=== PATIENT | female | born 1950 | race Caucasian/White ===

== ENCOUNTER → 2016-02-22 | Outpatient (CLI) | payer MEDICARE, MEDICAID ==
[~2016-02-22] MED LIST: ASPIRIN EC325 MG PO; AUGMENTIN 875 M1 TA1 PO; CYMBALTA30 MG PO; HABITROL14 MG/24 H TD; K-DUR 1010 MEQ PO; MAXZIDE-25 25MG25 MG PO; TRAZODO50 MG PO; ZOCOR10 MG PO
[2016-02-22 13:28] LABS: EST GLOM FILT AFRICAN AMERICAN > 60 ml/min
== END | disposition home or self-care (01) ==
LOC: CT 01-22 11:00 → LAB 12:56 → CT 12:56
PROVIDERS: Radiology Diagnostic Radiology
DX: I65.23 Occlusion and stenosis of bilateral carotid arteries (principal); R41.0 Disorientation, unspecified; G93.5 Compression of brain

== ENCOUNTER 2016-07-07 11:21 | Inpatient (IN) | payer MEDICARE, MEDICAID ==
[~2016-07-07] VITALS: Ht 162.6 cm; Wt 52.8 kg
--- NOTE | ~2016-07-07 | DS ---
[place], [place] DISCHARGE SUMMARY NAME: TAMARA PHILLIP UNIT #: [id number] ROOM: 525 DOCTOR: JELANI SHELLEY MD BIRTHDATE: [birth year] DOS: HOSPITAL COURSE: The patient is 66 years old, very well known to us. The patient comes in with complaints of difficulty breathing. The patient was seen in the office with cough and shortness of breath. Please see the H and P for details. After admission, chest x-ray did not show any pathology. She was placed on steroids, antibiotics, breathing treatments. She became allergic to DuoNebs, so was switched to Pulmicort and Xopenex, which she has tolerated nicely. The last few days, the bronchospasm persisted, so a CT of the chest was ordered, which has come back showing no pathology. With appropriate treatment plan, finally, the bronchospasm has resolved and she is no longer having a cough or shortness of breath, no wheezing is heard today on exam. So the plan therefore is to discharge her to home. She is encouraged to quit smoking. She has requested Chantix, which will be given today, a nebulizer with Xopenex was also prescribed. DISCHARGE DIAGNOSES: 1. Acute exacerbation of chronic obstructive pulmonary disease, acute respiratory distress syndrome. 2. Acute hypoxic respiratory failure. 3. Acute tracheobronchitis. 4. Benign hypertension. 5. Mixed hyperlipidemia, unable to tolerate statins. 6. Chronic low back pain with fibromyalgia. 7. 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 DISCHARGE MEDICATIONS: Will be Pulmicort 0.5 b.i.d., Xopenex 0.5 b.i.d. in the breathing treatments, Chantix daily for a month, prednisone tapering dose, Cipro 500 b.i.d., fluticasone nasal spray b.i.d., potassium 10 daily. The patient is already on low dose Zocor, so no increases in medication will be made, even though the LDL is 160; Cymbalta 60 mg daily; fenofibrate 160 mg daily; Plavix 75 daily; Xanax 0.5 daily; trazodone 50 at bedtime; lisinopril 5 daily; gabapentin 600 b.i.d.; naproxen 500 b.i.d.; triamterene/hydrochlorothiazide 37.5/25 one tablet daily; also Proventil 2 puffs twice daily p.r.n. for shortness of breath. [place], [place] DISCHARGE SUMMARY NAME: TAMARA PHILLIP UNIT #: [id number] ROOM: [facility] DOCTOR: JELANI SHELLEY MD BIRTHDATE: [birth year] JELANI SHELLEY MD CM:DISCHARG [phone] JELANI SHELLEY MD 07/10/16 0759 interface
--- NOTE | ~2016-07-07 | PR ---
[place], [place] PROGRESS NOTE NAME: TAMARA PHILLIP UNIT #: [id number] ROOM: 525 DOCTOR: JELANI SHELLEY MD BIRTHDATE: [birth year] DOS: SUBJECTIVE: The patient has a slight cough, headache, and shortness of breath. OBJECTIVE: VITAL SIGNS: Graphic trend shows a pressure 120/45, pulse of 63, respirations 18, temperature 97.5. LUNGS: Diminished breath sounds, scattered rhonchi heard bilaterally. HEART: Regular. ABDOMEN: Soft, scaphoid. EXTREMITIES: Without any edema. ASSESSMENT AND PLAN: 1. Acute exacerbation of chronic obstructive pulmonary disease with continued bronchospasm. She had refused breathing treatments, albuterol was giving a lot of side effects. We will change to Xopenex today as well as Pulmicort twice a day help with continued bronchospasm. A CT of the chest will also be ordered along with the sputum culture. 2. Possible postnasal drainage along with rhinitis and sinusitis. Flonase nasal spray was given. 3. Chronic pain from fibromyalgia, controlled. 4. Benign hypertension, controlled. 5. Tobacco dependence, has not needed any medications. JELANI SHELLEY MD CM:PNTRANS [phone] JELANI SHELLEY MD 07/09/16 1118 interface
--- NOTE | ~2016-07-07 | PR ---
[place], [place] PROGRESS NOTE NAME: TAMARA PHILLIP UNIT #: [id number] ROOM: 525 DOCTOR: JELANI SHELLEY MD BIRTHDATE: [birth year] DOS: SUBJECTIVE: The patient did have a fairly good night. She does not have any new complaints. OBJECTIVE: VITAL SIGNS: Blood pressure is 107/45, pulse of 75, respirations 20, temperature 97.7. LUNGS: Diminished breath sounds, clear this morning. HEART: Regular. ABDOMEN: Soft, scaphoid. EXTREMITIES: Without any edema. ASSESSMENT AND PLAN: 1. Acute exacerbation of chronic obstructive pulmonary disease with acute respiratory distress syndrome, much improved. The patient's bronchospasm has resolved. CT of the chest still shows no pathology. The patient is being discharged. 2. Acute tracheobronchitis, on antibiotics. We will switch to p.o. prednisone and steroids. Order a nebulizer and the patient is encouraged to quit smoking. JELANI SHELLEY MD CM:PNTRANS [phone] JELANI SHELLEY MD 07/10/16 0810 interface
--- NOTE | ~2016-07-07 | WRIGHTHP ---
[place], [place] PATIENT HISTORY AND PHYSICAL EXAM [id number] UNIT #: [id number] ROOM: 525 DOCTOR: JELANI SHELLEY MD BIRTHDATE: [birth year] DOS: 07/07/2016 HISTORY OF PRESENT ILLNESS: The patient is [id number], has been sick for 2 weeks, initially started out as cough with increasing difficulty breathing for the last 2-3 days and presented to the office. She denies having any chest pains or palpitations. She has continued nonstop cough and was unable to even converse. She does not have any palpitations, any abdominal pain, any nausea, any emesis or legs swelling. She continues to smoke. PAST MEDICAL HISTORY: Significant for; 1. Chronic low back pain. 2. Major depression. 3. History of TIA with bilateral carotid artery and carotid atherosclerosis. 4. Benign hypertension. 5. Type 2 diabetes mellitus, non-insulin dependent. 6. Tobacco dependence. 7. History of fibromyalgia with chronic back pain. MEDICATIONS: She is currently on are Xanax 0.5 daily p.r.n., Plavix 75 daily, duloxetine 60 daily, fenofibrate 160 daily, gabapentin 600 b.i.d., triamterene/hydrochlorothiazide 1 tablet daily, lisinopril 5 daily, naproxen 500 b.i.d., potassium 10 daily, simvastatin 10 daily, trazodone 50 at bedtime. SOCIAL HISTORY: Smoker of about 1 to 1-1/2 pack of cigarettes. Denies using any alcohol. PHYSICAL EXAMINATION: GENERAL: She is awake and alert and oriented. VITAL SIGNS: Blood pressure is 116/56, pulse is 65, respirations 20, temperature 97.7. LUNGS: Diminished breath sounds. Bronchi, rales and wheezes. HEART: Regular. ABDOMEN: Obese, soft, nontender. EXTREMITIES: Without any edema. LABORATORY DATA: X-ray of the left shoulder shows glenohumeral joint space narrowing. Chest x-ray shows no acute pulmonary disease. Glucose 94, BUN 22, creatinine 0.81. Electrolytes were normal. WBC count is 5.9, normal electrolytes. ASSESSMENT AND PLAN: 1. Acute exacerbation of chronic obstructive pulmonary disease with acute respiratory distress syndrome, pulse ox in the low 80s in the office. Breathing treatment was given in the office but patient continued to have bronchospasm, so we offered to admit her for steroids and antibiotics. The patient is also instructed to discontinue smoking. Chest x-ray and routine labs were ordered to rule out underlying pneumonia. A PST will need to be done as an outpatient when the patient is more better to maximize the bronchodilator regimen. 2. Fibromyalgia with chronic back pain. Continue home medications. No changes made. [place], [place] PATIENT HISTORY AND PHYSICAL EXAM NAME: TAMARA PHILLIP UNIT #: [id number] ROOM: [facility] DOCTOR: JELANI SHELLEY MD BIRTHDATE: [birth year] JELANI SHELLEY MD CM:HISPHYS:PATIENT HISTORY AND PHYSICAL EXAMINATION 7 5 JELANI SHELLEY MD 07/08/1615 interface
[2016-07-07 11:00] VITALS: BP 174/74
[2016-07-07] MEDS ORDERED: TRICOR48 MG PO (12:14)
[2016-07-07] MEDS ORDERED: XANAX0.25 MG PO (12:15)
[2016-07-07] MEDS ORDERED: PLAVIX75 M1 PO (12:15)
[2016-07-07] MEDS ORDERED: LISINOPRIL10 M1 PO (12:15)
[2016-07-07] MEDS ORDERED: TRAZODONE50 MG PO (12:17)
[2016-07-07] MEDS ORDERED: ZESTRIL5 MG PO (12:23)
[2016-07-07] MEDS ORDERED: GABAPENTIN600 MG PO (12:37)
[2016-07-07] MEDS ORDERED: EC NAPROSYN500 MG PO (12:38)
[2016-07-07] MEDS ORDERED: TRIAMTERENE & H1 CAP PO (12:39)
[2016-07-07 13:03] LABS: BASO % 0.7 % (0.0-1.0); EOS # 0.2 10*3/uL (0.0-0.4); EOS % 2.9 % (1.0-4.0); HEMATOCRIT 41.1 % (37.0-47.0); HEMOGLOBIN 13.5 g/dl (12.0-16.0); LYMPH # 2.3 10*3/uL (1.3-4.4); LYMPH % 39.6 % (27.0-41.0); MEAN CELL VOLUME 88.2 fl (81.0-99.0); MEAN CORPUSCULAR HGB CONC 32.8 g/dl (33.0-37.0); MEAN PLATELET VOLUME 9.8 fl (9.6-12.3); MONO # 0.4 10*3/uL (0.1-1.0); MONO % 6.8 % (3.0-9.0); NEUT # 2.9 10*3/uL (2.3-7.9); NEUT % 49.7 % (47.0-73.0); PLATELET COUNT AUTOMATED 340 10*3/uL (130-400); RED BLOOD COUNT 4.66 10*6/uL (4.10-5.10); RED CELL DISTRI WIDTH 12.5 % (0-14.5); WHITE BLOOD COUNT 5.9 10*3/uL (4.8-10.8)
[2016-07-07 13:15] LABS: BUN 24 mg/dl (7-24); CARBON DIOXIDE 27 mmol/L (21-32); CHLORIDE 106 mmol/L (98-107); EST GLOM FILT AFRICAN AMERICAN > 60 ml/min; GLUCOSE 94 mg/dL (65-99); POTASSIUM 4.7 mmol/L (3.5-5.1); SODIUM 139 mmol/L (136-145)
[2016-07-07 16:00] VITALS: BP 166/66
[2016-07-07 20:00] VITALS: BP 174/72
[2016-07-08] VITALS: BP 116/56
[2016-07-08 08:00] VITALS: BP 140/56
[2016-07-08 12:00] VITALS: BP 147/69
[2016-07-08 16:00] VITALS: BP 159/65
[2016-07-08 20:00] VITALS: BP 143/57
[2016-07-09] VITALS (7 sets, daily range): BP systolic 118–152; BP diastolic 40–73
[2016-07-10] VITALS: BP 107/45
[2016-07-10] MEDS ORDERED: PREDNISONE5 MG PO ×2 (06:53→07:02)
[2016-07-10] MEDS ORDERED: CIPRO500 MG PO ×3 (06:53→07:04)
[2016-07-10] MEDS ORDERED: FLUTICASON0.05 MG/AC NAS ×2 (06:53→07:02)
[2016-07-10] MEDS ORDERED: NEBULIZER NEB ×2 (06:53→07:02)
[2016-07-10] MEDS ORDERED: XOPENEX0.63 MG INH ×2 (06:53→07:02)
[2016-07-10] MEDS ORDERED: CHANTIX START M1 TAB PO ×2 (06:53→07:02)
[2016-07-10] MEDS ORDERED: PULMICORT RESP0.5 MG NEB ×2 (06:53→07:02)
[2016-07-10] MEDS ORDERED: PROVENTIL0.09 MG/A1 INH ×2 (06:58→07:02)
[2016-07-10 08:00] VITALS: BP 144/57
== END 2016-07-10 10:07 | disposition home or self-care (01) | DRG 189 ==
LOC: 5E 11:21
PROVIDERS: Internal Medicine
DX: J96.01 Acute respiratory failure with hypoxia (principal); J44.0 Chronic obstructive pulmonary disease with (acute) lower respiratory infection; J44.1 Chronic obstructive pulmonary disease with (acute) exacerbation; G89.29 Other chronic pain; M54.5 Low back pain; I10 Essential (primary) hypertension; E11.9 Type 2 diabetes mellitus without complications; Z86.73 Personal history of transient ischemic attack (TIA), and cerebral infarction without residual deficits; F17.210 Nicotine dependence, cigarettes, uncomplicated; M79.7 Fibromyalgia; J20.9 Acute bronchitis, unspecified; Z53.29 Procedure and treatment not carried out because of patient's decision for other reasons; Z71.6 Tobacco abuse counseling; E78.2 Mixed hyperlipidemia; Z88.8 Allergy status to other drugs, medicaments and biological substances

== ENCOUNTER → 2016-08-01 | Outpatient (CLI) | payer MEDICARE, MEDICAID ==
[~2016-08-01] MED LIST changes: +CHANTIX START M1 TAB PO; +CIPRO500 MG PO; +EC NAPROSYN500 MG PO; +FLUTICASON0.05 MG/AC NAS; +GABAPENTIN600 MG PO; +LISINOPRIL10 M1 PO; +NEBULIZER NEB; +PLAVIX75 M1 PO; +PREDNISONE5 MG PO; +PROVENTIL0.09 MG/A1 INH; +PULMICORT RESP0.5 MG NEB; +TRAZODONE50 MG PO; +TRIAMTERENE & H1 CAP PO; +TRICOR48 MG PO; +XANAX0.25 MG PO; +XOPENEX0.63 MG INH; +ZESTRIL5 MG PO
== END | disposition home or self-care (01) ==
LOC: MRI 07-26 10:00
DX: M19.012 Primary osteoarthritis, left shoulder (principal); M25.712 Osteophyte, left shoulder; M25.412 Effusion, left shoulder; M25.522 Pain in left elbow

== ENCOUNTER → 2016-08-03 | Outpatient (CLI) | payer MEDICARE, MEDICAID | END | disposition home or self-care (01) | LOC: CT 07-20 15:00 | DX: R51 Headache (principal); R42 Dizziness and giddiness ==

== ENCOUNTER 2016-08-06 15:17 | Emergency (ER) | payer MEDICARE, MEDICAID ==
[~2016-08-06] VITALS: Ht 165.1 cm; Wt 52.2 kg
[2016-08-06 15:27] VITALS: BP 156/63
[2016-08-06] MEDS ORDERED: PREDNISONE10 MG PO (15:37)
[2016-08-06] MEDS ORDERED: CYCLOBENZAPRINE5 M3 PO (15:37)
== END 2016-08-06 15:53 | disposition home or self-care (01) ==
LOC: ED 15:17
DX: M79.622 Pain in left upper arm (principal); M54.10 Radiculopathy, site unspecified; R03.0 Elevated blood-pressure reading, without diagnosis of hypertension; J44.9 Chronic obstructive pulmonary disease, unspecified; F17.200 Nicotine dependence, unspecified, uncomplicated; Z88.8 Allergy status to other drugs, medicaments and biological substances; Z79.899 Other long term (current) drug therapy

== ENCOUNTER → 2016-08-22 | Outpatient (CLI) | payer MEDICARE, MEDICAID ==
[~2016-08-22] MED LIST changes: +CYCLOBENZAPRINE5 M3 PO; +PREDNISONE10 MG PO
== END | disposition home or self-care (01) ==
LOC: ORTHO 03:26
DX: M48.02 Spinal stenosis, cervical region (principal); M46.02 Spinal enthesopathy, cervical region

== ENCOUNTER → 2016-12-21 | Outpatient (CLI) | payer MEDICARE, MEDICAID ==
[2016-12-21 09:44] LABS: BASO % 0.4 % (0.0-1.0); EOS # 0.1 10*3/uL (0.0-0.4); EOS % 1.3 % (1.0-4.0); HEMATOCRIT 38.8 % (37.0-47.0); HEMOGLOBIN 12.7 g/dl (12.0-16.0); LYMPH # 2.1 10*3/uL (1.3-4.4); LYMPH % 28.2 % (27.0-41.0); MEAN CELL VOLUME 86.4 fl (81.0-99.0); MEAN CORPUSCULAR HGB 28.3 pg (27.0-31.0); MEAN CORPUSCULAR HGB CONC 32.7 g/dl (33.0-37.0); MONO # 0.4 10*3/uL (0.1-1.0); MONO % 5.7 % (3.0-9.0); NEUT # 4.8 10*3/uL (2.3-7.9); NEUT % 64.1 % (47.0-73.0); PLATELET COUNT AUTOMATED 303 10*3/uL (130-400); RED BLOOD COUNT 4.49 10*6/uL (4.10-5.10); RED CELL DISTRI WIDTH 14.6 % (0-14.5); WHITE BLOOD COUNT 7.5 10*3/uL (4.8-10.8)
[2016-12-21 10:31] LABS: ALBUMIN 3.8 gm/dl (3.1-4.5); ALKALINE PHOSPHATASE 92 U/L (45-117); BUN 26 mg/dl (7-24); CHLORIDE 104 mmol/L (98-107); CHOLESTEROL 235 mg/dL (<200); CREATININE 0.85 mg/dL (0.55-1.02); FREE T4 0.79 ng/dl (0.76-1.46); HDL CHOLESTEROL 93 mg/dl (40-60); LDL CHOLESTEROL 108 mg/dL (9-159); POTASSIUM 4.3 mmol/L (3.5-5.1); SGOT/AST 10 IU/L (3-35); SGPT/ALT 19 U/L (12-78); SODIUM 140 mmol/L (136-145); TOTAL PROTEIN 7.7 gm/dL (6.4-8.2); TRIGLYCERIDES 172 mg/dl (<150); VLDL CHOLESTEROL 34 mg/dL (6-40)
[2016-12-21 11:57] LABS: VITAMIN D, 25-HYDROXY 31.3 ng/mL (30-100)
== END ==
LOC: LAB 09:25
PROVIDERS: Internal Medicine
DX: Z13.1 Encounter for screening for diabetes mellitus (principal); Z13.21 Encounter for screening for nutritional disorder; Z13.220 Encounter for screening for lipoid disorders; R53.81 Other malaise; E55.9 Vitamin D deficiency, unspecified; E78.2 Mixed hyperlipidemia

== ENCOUNTER → 2017-03-08 | Outpatient (CLI) | payer MEDICARE, MEDICAID | END | disposition home or self-care (01) | LOC: MRI 09:47 | DX: M47.892 Other spondylosis, cervical region (principal); M54.12 Radiculopathy, cervical region; M53.82 Other specified dorsopathies, cervical region; M51.26 Other intervertebral disc displacement, lumbar region ==

== ENCOUNTER → 2017-07-20 | Outpatient (CLI) | payer MEDICARE, MEDICAID | END | disposition home or self-care (01) | LOC: MRI 09:37 | DX: M75.101 Unspecified rotator cuff tear or rupture of right shoulder, not specified as traumatic (principal); M25.861 Other specified joint disorders, right knee ==

== ENCOUNTER → 2017-10-16 | Outpatient (CLI) | payer MEDICARE, MEDICAID | END | disposition home or self-care (01) | LOC: RAD 11:21 | DX: I10 Essential (primary) hypertension (principal); E11.9 Type 2 diabetes mellitus without complications; F17.200 Nicotine dependence, unspecified, uncomplicated; R06.02 Shortness of breath ==

== ENCOUNTER → 2018-04-23 | Outpatient (CLI) | payer MEDICARE, MEDICAID | END | disposition home or self-care (01) | LOC: ORTHO 00:51 | DX: M25.511 Pain in right shoulder (principal) ==

== ENCOUNTER → 2018-11-16 | Outpatient (CLI) | payer OTHER, MEDICAID ==
[2018-11-16 14:39] LABS: BASO # 0.1 10*3/uL (0.0-0.1); BASO % 0.9 % (0.0-1.0); EOS # 0.1 10*3/uL (0.0-0.4); EOS % 1.4 % (1.0-4.0); HEMATOCRIT 38.6 % (37.0-47.0); HEMOGLOBIN 12.3 g/dl (12.0-16.0); LYMPH # 1.6 10*3/uL (1.3-4.4); LYMPH % 24.6 % (27.0-41.0); MEAN CELL VOLUME 90.6 fl (81.0-99.0); MEAN CORPUSCULAR HGB 28.9 pg (27.0-31.0); MEAN CORPUSCULAR HGB CONC 31.9 g/dl (33.0-37.0); MEAN PLATELET VOLUME 10.1 fl (9.6-12.3); MONO # 0.4 10*3/uL (0.1-1.0); MONO % 6.1 % (3.0-9.0); NEUT # 4.4 10*3/uL (2.3-7.9); NEUT % 66.7 % (47.0-73.0); PLATELET COUNT AUTOMATED 333 10*3/uL (130-400); RED BLOOD COUNT 4.26 10*6/uL (4.10-5.10); RED CELL DISTRI WIDTH 12.8 % (0-14.5); WHITE BLOOD COUNT 6.6 10*3/uL (4.8-10.8)
[2018-11-16 15:12] LABS: FREE T4 0.94 ng/dl (0.76-1.46)
== END | disposition home or self-care (01) ==
LOC: RAD 11-14 13:00 → US 12:30 → LAB 12:32 → RAD 13:30
PROVIDERS: Internal Medicine
DX: R42 Dizziness and giddiness (principal); D64.9 Anemia, unspecified; E03.9 Hypothyroidism, unspecified; I10 Essential (primary) hypertension; F17.200 Nicotine dependence, unspecified, uncomplicated; I65.23 Occlusion and stenosis of bilateral carotid arteries; R29.890 Loss of height; J44.9 Chronic obstructive pulmonary disease, unspecified; Z78.0 Asymptomatic menopausal state

== ENCOUNTER → 2018-11-30 | Outpatient (CLI) | payer OTHER, MEDICAID ==
[2018-11-30 14:22] LABS: CREATININE 0.95 mg/dL (0.55-1.02)
== END | disposition home or self-care (01) ==
LOC: CT 13:00 → LAB 13:35 → CT 13:35
PROVIDERS: Internal Medicine
DX: I65.22 Occlusion and stenosis of left carotid artery (principal)

== ENCOUNTER 2019-02-04 14:31 | Emergency (ER) | payer OTHER, MEDICAID ==
[~2019-02-04] VITALS: Ht 165.1 cm; Wt 51.7 kg
[2019-02-04 14:34] VITALS: BP 121/71
[2019-02-04 15:40] LABS: BASO % 0.4 % (0.0-1.0); EOS # 0.1 10*3/uL (0.0-0.4); EOS % 0.9 % (1.0-4.0); HEMATOCRIT 37.8 % (37.0-47.0); HEMOGLOBIN 12.1 g/dl (12.0-16.0); LYMPH # 2.8 10*3/uL (1.3-4.4); LYMPH % 29.9 % (27.0-41.0); MEAN CELL VOLUME 90.6 fl (81.0-99.0); MEAN PLATELET VOLUME 9.6 fl (9.6-12.3); MONO # 0.4 10*3/uL (0.1-1.0); MONO % 4.5 % (3.0-9.0); NEUT % 64.1 % (47.0-73.0); PLATELET COUNT AUTOMATED 397 10*3/uL (130-400); RED BLOOD COUNT 4.17 10*6/uL (4.10-5.10); RED CELL DISTRI WIDTH 13.2 % (0-14.5); WHITE BLOOD COUNT 9.3 10*3/uL (4.8-10.8)
[2019-02-04 15:54] LABS: ALKALINE PHOSPHATASE 84 U/L (45-117); BUN 19 mg/dl (7-24); CHLORIDE 108 mmol/L (98-107); CREATININE 0.82 mg/dL (0.55-1.02); LIPASE 173 U/L (73-393); POTASSIUM 3.9 mmol/L (3.5-5.1); SGOT/AST 11 IU/L (3-35); SGPT/ALT 17 U/L (12-78); SODIUM 139 mmol/L (136-145); TOTAL PROTEIN 7.6 gm/dL (6.4-8.2)
[2019-02-04 16:15] LABS: BILIRUBIN NEGATIVE (NEGATIVE); BLOOD NEGATIVE (NEGATIVE); CLARITY CLEAR (CLEAR); COLOR YELLOW (YELLOW); GLUCOSE NEGATIVE (NEGATIVE); KETONE NEGATIVE (NEGATIVE); LEUKO ESTERASE NEGATIVE (NEGATIVE); NITRITE NEGATIVE (NEGATIVE); SPECIFIC GRAVITY >= 1.030 (1.005-1.030); UROBILINOGEN 0.2 E.U./dl (0.2-1.0)
[2019-02-04 16:47] LABS: WBC 0-2 wbc/hpf (0-5)
[2019-02-04] MEDS ORDERED: ZOFRAN4 MG PO (18:01)
== END 2019-02-04 18:21 | disposition home or self-care (01) ==
LOC: ED 14:31
PROVIDERS: Nurse Practitioner Family
DX: R63.0 Anorexia (principal); R50.9 Fever, unspecified; R53.1 Weakness; R11.0 Nausea; J44.9 Chronic obstructive pulmonary disease, unspecified; K21.9 Gastro-esophageal reflux disease without esophagitis; E11.9 Type 2 diabetes mellitus without complications; F17.200 Nicotine dependence, unspecified, uncomplicated; Z88.8 Allergy status to other drugs, medicaments and biological substances; Z79.899 Other long term (current) drug therapy; Z87.442 Personal history of urinary calculi